=== PATIENT | female | born 2000 | race American Indian/Alaskan Native ===

== ENCOUNTER 2021-04-04 11:39 | Emergency (ER) | payer MEDICAID ==
[2021-04-04] MEDS ORDERED: FAMOTIDINE 20 MG/2 ML INJ IV NR (12:31)
[2021-04-04] MEDS ORDERED: METOCLOPRAMIDE 10 MG/2 ML INJ IV NR (12:31)
[2021-04-04] MEDS ORDERED: MORPHINE 2 MG/1 ML INJ IV NR (12:32)
[2021-04-04] MEDS ORDERED: LACTATED RINGERS 1,000 ML IV ONE (12:32)
[2021-04-04] MEDS ORDERED: MORPHINE 4 MG/1 ML INJ IV ONE (12:43)
--- NOTE | 2021-04-04 12:50 | Emergency Department Report ---
ED General Adult HPI - General Chief complaint: Abdominal Pain Stated complaint: ABDOMINAL PAIN Time Seen by Provider: 04/04/21 12:28 Source: patient Mode of arrival: Ambulatory Limitations: No Limitations - History of Present Illness Initial comments: 20-year-old female patient presents with complaints of sudden onset of upper abdominal pain and nausea and vomiting starting yesterday. She states she took a test yesterday and noted that it was positive also. She admits to a history of GERD and gastritis and denies any hematemesis/coffee-ground emesis, diarrhea/hematochezia/melena, fever/chills/sweats, cough, chest pain, or shortness of breath. She has not tried any medications for her symptoms. She is G1, . Patient also denies any vaginal bleeding, dyspareunia/vaginal discharge, urinary frequency, or dysuria/hematuria. She rates her current abdominal pain is a 10/10 in severity. She states it does feel somewhat similar to when she has had flareups of her gastritis in the past - Related Data Previous Rx's Medication Instructions Recorded Last Taken Type Famotidine [Pepcid] 20 mg PO BID 7 Days #14 tablet 04/04/21 Unknown Rx Metoclopramide [Reglan] 10 mg PO Q8H PRN #30 tab 04/04/21 Unknown Rx diphenhydrAMINE [Benadryl CAP] 25 mg PO Q8H PRN #30 capsule 04/04/21 Unknown Rx Allergies Allergy/AdvReac Type Severity Reaction Status Date / Time No Known Allergies Allergy Verified 04/04/21 16:37 ED Review of Systems ROS: Stated complaint: ABDOMINAL PAIN Other details as noted in HPI Constitutional: denies: chills, diaphoresis, fever, malaise Respiratory: denies: cough, SOB with exertion Cardiovascular: denies: chest pain Gastrointestinal: abdominal pain, nausea, vomiting. denies: diarrhea, constipation, hematemesis, melena, hematochezia Genitourinary: denies: urgency, dysuria, frequency, hematuria, discharge, abnormal menses, dyspareunia Skin: denies: rash, lesions, change in color Neurological: denies: headache Hematological/Lymphatic: denies: swollen glands ED Past Medical Hx - Medications Home Medications: Home Medications Medication Instructions Recorded Confirmed Last Taken Type Famotidine [Pepcid] 20 mg PO BID 7 Days #14 tablet 04/04/21 Unknown Rx Metoclopramide [Reglan] 10 mg PO Q8H PRN #30 tab 04/04/21 Unknown Rx diphenhydrAMINE [Benadryl CAP] 25 mg PO Q8H PRN #30 capsule 04/04/21 Unknown Rx ED Physical Exam - General Limitations: No Limitations General appearance: alert, in no apparent distress, obese - Head Head exam: Present: atraumatic, normocephalic - Eye Eye exam: Present: normal appearance. Absent: scleral icterus - Respiratory Respiratory exam: Absent: respiratory distress - Cardiovascular Cardiovascular Exam: Present: regular rate, normal rhythm - GI/Abdominal GI/Abdominal exam: Present: soft, tenderness (Epigastric/right upper quadrant; mild right lower quadrant), normal bowel sounds. Absent: distended, guarding, rebound, rigid - Back Exam Back exam: Absent: CVA tenderness (R), CVA tenderness (L) - Neurological Exam Neurological exam: Present: alert, oriented X3, normal gait - Psychiatric Psychiatric exam: Present: normal affect, normal mood - Skin Skin exam: Present: warm, dry, intact, normal color. Absent: rash, cyanosis, diaphoretic ED Course Vital Signs 04/04/21 04/04/21 04/04/21 11:44 13:11 15:57 Temperature 99.3 F Pulse Rate 99 H Respiratory 20 16 Rate Blood Pressure 129/80 Blood Pressure [Left] O2 Sat by Pulse 98 99 Oximetry 04/04/21 16:36 Temperature 97.6 F Pulse Rate 73 Respiratory 14 Rate Blood Pressure Blood Pressure 121/75 [Left] O2 Sat by Pulse 99 Oximetry ED Medical Decision Making - Lab Data Result diagrams: 04/04/21 12:21 04/04/21 12:21 Lab Results 04/04/21 04/04/21 04/04/21 Range/Units 12:21 12:21 12:21 WBC 10.4 (4.5-11.0) K/mm3 RBC 4.25 (3.65-5.03) M/mm3 Hgb 13.2 (10.1-14.3) gm/dl Hct 37.8 (30.3-42.9) % MCV 89 (79-97) fl MCH 31 (28-32) pg MCHC 35 H (30-34) % RDW 13.8 (13.2-15.2) % Plt Count 324 (140-440) K/mm3 Lymph % (Auto) 15.6 (13.4-35.0) % [place] % (Auto) 4.2 (0.0-7.3) % Eos % (Auto) 0.6 (0.0-4.3) % Baso % (Auto) 0.6 (0.0-1.8) % Lymph # (Auto) 1.6 (1.2-5.4) K/mm3 [place] # (Auto) 0.4 (0.0-0.8) K/mm3 Eos # (Auto) 0.1 (0.0-0.4) K/mm3 Baso # (Auto) 0.1 (0.0-0.1) K/mm3 Seg Neutrophils % 79.0 H (40.0-70.0) % Seg Neutrophils # 8.2 H (1.8-7.7) K/mm3 Sodium 139 (137-145) mmol/L Potassium 3.8 (3.6-5.0) mmol/L Chloride 103.1 (98-107) mmol/L Carbon Dioxide 20 L (22-30) mmol/L Anion Gap 20 mmol/L BUN 5 L (7-17) mg/dL Creatinine 0.4 L (0.6-1.2) mg/dL Estimated GFR > 60 ml/min BUN/Creatinine Ratio 13 % Glucose 132 H (65-100) mg/dL Calcium 9.3 (8.4-10.2) mg/dL Total Bilirubin 0.40 (0.1-1.2) mg/dL AST 17 (5-40) units/L ALT 24 (7-56) units/L Alkaline Phosphatase 77 (35-129) units/L Total Protein 7.5 (6.3-8.2) g/dL Albumin 4.5 (3.9-5) g/dL Albumin/Globulin Ratio 1.5 % HCG, Quant 53107 H (0-4) mIU/mL Urine Color (Yellow) Urine Turbidity (Clear) Urine pH (5.0-7.0) Ur Specific [place] (1.003-1.030) Urine Protein (Negative) mg/dL Urine Glucose (UA) (Negative) mg/dL Urine Ketones (Negative) mg/dL Urine Blood (Negative) Urine Nitrite (Negative) Ur Reducing Substances Urine Bilirubin (Negative) Urine Ictotest Urine Urobilinogen (<2.0) mg/dL Ur Leukocyte Esterase (Negative) Urine WBC (Auto) (0.0-6.0) /HPF Urine RBC (Auto) (0.0-6.0) /HPF U Epithel Cells (Auto) (0-13.0) /HPF Urine Bacteria (Auto) (Negative) /HPF Urine Mucus /HPF Urine HCG, Qual (Negative) 04/04/21 Range/Units Unknown WBC (4.5-11.0) K/mm3 RBC (3.65-5.03) M/mm3 Hgb (10.1-14.3) gm/dl Hct (30.3-42.9) % MCV (79-97) fl MCH (28-32) pg MCHC (30-34) % RDW (13.2-15.2) % Plt Count (140-440) K/mm3 Lymph % (Auto) (13.4-35.0) % [place] % (Auto) (0.0-7.3) % Eos % (Auto) (0.0-4.3) % Baso % (Auto) (0.0-1.8) % Lymph # (Auto) (1.2-5.4) K/mm3 [place] # (Auto) (0.0-0.8) K/mm3 Eos # (Auto) (0.0-0.4) K/mm3 Baso # (Auto) (0.0-0.1) K/mm3 Seg Neutrophils % (40.0-70.0) % Seg Neutrophils # (1.8-7.7) K/mm3 Sodium (137-145) mmol/L Potassium (3.6-5.0) mmol/L Chloride (98-107) mmol/L Carbon Dioxide (22-30) mmol/L Anion Gap mmol/L BUN (7-17) mg/dL Creatinine (0.6-1.2) mg/dL Estimated GFR ml/min BUN/Creatinine Ratio % Glucose (65-100) mg/dL Calcium (8.4-10.2) mg/dL Total Bilirubin (0.1-1.2) mg/dL AST (5-40) units/L ALT (7-56) units/L Alkaline Phosphatase (35-129) units/L Total Protein (6.3-8.2) g/dL Albumin (3.9-5) g/dL Albumin/Globulin Ratio % HCG, Quant (0-4) mIU/mL Urine Color Yellow (Yellow) Urine Turbidity Clear (Clear) Urine pH 5.0 (5.0-7.0) Ur Specific [place] 1.023 (1.003-1.030) Urine Protein <15 mg/dl (Negative) mg/dL Urine Glucose (UA) Neg (Negative) mg/dL Urine Ketones 20 (Negative) mg/dL Urine Blood Neg (Negative) Urine Nitrite Neg (Negative) Ur Reducing Substances Not Reportable Urine Bilirubin Neg (Negative) Urine Ictotest Not Reportable Urine Urobilinogen 2.0 (<2.0) mg/dL Ur Leukocyte Esterase Neg (Negative) Urine WBC (Auto) 3.0 (0.0-6.0) /HPF Urine RBC (Auto) 6.0 (0.0-6.0) /HPF U Epithel Cells (Auto) 1.0 (0-13.0) /HPF Urine Bacteria (Auto) 1+ (Negative) /HPF Urine Mucus 3+ /HPF Urine HCG, Qual Positive A (Negative) - Radiology Data Radiology results: report reviewed ULTRASOUND OBSTETRIC INDICATION / CLINICAL INFORMATION: pain. Clinical Gestational Age (GA) in weeks, days: 5, 4 TECHNIQUE: Transabdominal. COMPARISON: None available. FINDINGS: GESTATIONAL SAC: There is a hypoechoic area within the endometrium suggesting a gestational sac. The mean sac diameter measures 1.6 cm. This corresponds to a 6 week 3 day gestation. YOLK SAC: Not seen EMBRYO/FETUS: Not seen ADNEXA: No significant abnormality. FREE FLUID: None. ADDITIONAL FINDINGS: None. IMPRESSION: There is a hypoechoic area within the endometrium suggesting a gestational sac. The mean sac diameter measures 1.6 cm corresponding to a 6 week 3 day gestation. The mean sac diameter is too small to establish viability. Recommend repeat ultrasound in 7-10 days. - Medical Decision Making 20-year-old female patient presents with complaints of sudden onset of upper abdominal pain and nausea and vomiting starting yesterday. She states she took a test yesterday and noted that it was positive also. She admits to a history of GERD and gastritis and denies any hematemesis/coffee-ground emesis, diarrhea/hematochezia/melena, fever/chills/sweats, cough, chest pain, or shortness of breath. She has not tried any medications for her symptoms. She is G1, . Patient also denies any vaginal bleeding, dyspareunia/vaginal discharge, urinary frequency, or dysuria/hematuria. She rates her current abdominal pain is a 10/10 in severity. She states it does feel somewhat similar to when she has had flareups of her gastritis in the past No acute abnormalities noted on labs or UA. Right upper quadrant ultrasound is normal. CT performed given some right lower quadrant pain on exam. CT shows possible mild enteritis without other acute findings. IV contrast not used due to patient allergy. Her pain is controlled and she is well-appearing. Discussed findings with patient. We will treat for viral enteritis at this point given patient is afebrile, nontachycardic, and her white count is normal. She is to follow-up with her primary care doctor in 3 to 5 days. Strict return precautions were discussed in detail with patient who verbalizes understanding. Critical care attestation.: If time is entered above; I have spent that time in minutes in the direct care of this critically ill patient, excluding procedure time. ED Disposition Clinical Impression: Nausea/vomiting in , 6 weeks gestation of Disposition: 01 HOME / SELF CARE / HOMELESS Is pt being admited?: No Condition: Stable Instructions: Hyperemesis Gravidarum, Abdominal Pain (ED) Prescriptions: diphenhydrAMINE [Benadryl CAP] 25 mg PO Q8H PRN #30 capsule PRN Reason: Nausea Famotidine [Pepcid] 20 mg PO BID 7 Days #14 tablet Metoclopramide [Reglan] 10 mg PO Q8H PRN #30 tab PRN Reason: Nausea Referrals: [facility] [Provider Group] - 3-5 Days [facility] [Provider Group] - 3-5 Days [facility] [Provider Group] - 3-5 Days Forms: Work/School Release Form(ED)
[2021-04-04] MEDS ORDERED: MORPHINE 2 MG/1 ML INJ IV ONE (12:51)
[2021-04-04 12:53] LABS: Basophils # (Auto) 0.1 K/mm3 (0.0-0.1); Basophils % (Auto) 0.6 % (0.0-1.8); Eosinophils # (Auto) 0.1 K/mm3 (0.0-0.4); Eosinophils % (Auto) 0.6 % (0.0-4.3); Hematocrit 37.8 % (30.3-42.9); Hemoglobin 13.2 gm/dl (10.1-14.3); Lymphocytes # (Auto) 1.6 K/mm3 (1.2-5.4); Lymphocytes % (Auto) 15.6 % (13.4-35.0); Mean Corpuscular HGB Conc 35 % (30-34); Mean Corpuscular Volume 89 fl (79-97); Monocytes # (Auto) 0.4 K/mm3 (0.0-0.8); Monocytes % (Auto) 4.2 % (0.0-7.3); Platelet Count 324 K/mm3 (140-440); Red Blood Count 4.25 M/mm3 (3.65-5.03); Red Cell Distribution Width 13.8 % (13.2-15.2)
[2021-04-04] MEDS ORDERED: diphenhydrAMINE 50 MG/ML VIAL IV NR (13:00)
[2021-04-04 13:01] LABS: HCG Qualitative,Urine Positive (Negative)
[2021-04-04 13:06] LABS: Bacteria,Urine 1+ /HPF (Negative); Bilirubin,Urine NEG (Negative); Blood,Urine NEG (Negative); Color,Urine Yellow (Yellow); Mucus,Urine 3+ /HPF; Protein,Urine <15 mg/dL mg/dL (Negative)
[2021-04-04 13:19] LABS: Alanine Aminotransferase 24 units/L (7-56); Albumin 4.5 g/dL (3.9-5); BUN/Creatinine Ratio 13; Blood Urea Nitrogen 5 mg/dL (7-17); Calcium 9.3 mg/dL (8.4-10.2); Hemolysis Index 0
--- NOTE | 2021-04-04 14:38 | Ultrasound Report ---
ULTRASOUND ABDOMEN, LIMITED (RIGHT UPPER QUADRANT) INDICATION: acute pain. COMPARISON: None available. FINDINGS: Pancreas: Visualized portion shows no significant abnormality. Liver: Normal. Gallbladder: Normal. Bile ducts: Normal. Common Bile Duct measures 2.8 mm. Free fluid: None. Additional Findings: None. IMPRESSION: Unremarkable right upper quadrant ultrasound. Signer Name: Logan Yuen MD Signed: 04/04/2021 2:34 PM Workstation Name: [id number]
--- NOTE | 2021-04-04 14:39 | Ultrasound Report ---
ULTRASOUND OBSTETRIC INDICATION / CLINICAL INFORMATION: pain. Clinical Gestational Age (GA) in weeks, days: 5, 4 TECHNIQUE: Transabdominal. COMPARISON: None available. FINDINGS: GESTATIONAL SAC: There is a hypoechoic area within the endometrium suggesting a gestational sac. The mean sac diameter measures 1.6 cm. This corresponds to a 6 week 3 day gestation. YOLK SAC: Not seen EMBRYO/FETUS: Not seen ADNEXA: No significant abnormality. FREE FLUID: None. ADDITIONAL FINDINGS: None. IMPRESSION: There is a hypoechoic area within the endometrium suggesting a gestational sac. The mean sac diameter measures 1.6 cm corresponding to a 6 week 3 day gestation. The mean sac diameter is too small to est ablish viability. Recommend repeat ultrasound in 7-10 days. Signer Name: Keenan Porras DO Signed: 04/04/2021 2:34 PM Workstation Name: [id number]
[2021-04-04] MEDS ORDERED: FAMOTIDINE 20 MG/2 ML INJ IV ONE (14:49)
[2021-04-04] MEDS ORDERED: METOCLOPRAMIDE 10 MG/2 ML INJ IV ONE (14:49)
[2021-04-04] MEDS ORDERED: PROMETHAZINE 25 MG TAB PO ONE (16:24)
[2021-04-04 16:37] VITALS: BP 121/75
[2021-04-04] MEDS ORDERED: diphenhydrAMINE 50 MG/ML VIAL IV ONE (16:48)
[2021-04-04] MEDS ORDERED: ONDANSETRON 4 MG/2 ML INJ IV ONE (16:48)
[2021-04-04] MEDS ORDERED: ONDANSETRON 4 MG/2 ML INJ IM ONE (16:50)
[2021-04-04] MEDS ORDERED: diphenhydrAMINE 50 MG/ML VIAL IM ONE (16:50)
[2021-04-04] MEDS ORDERED: PROMETHAZINE 25 MG RECT SUPP PR ONE (18:01)
== END 2021-04-04 16:36 | disposition home or self-care (01) ==
LOC: ED 11:39
DX: O21.9 Vomiting of pregnancy, unspecified (principal); O26.891 Other specified pregnancy related conditions, first trimester; R10.31 Right lower quadrant pain; Z3A.01 Less than 8 weeks gestation of pregnancy; Z79.899 Other long term (current) drug therapy
CPT/HCPCS: 36415; 76705; 76801; 80053; 81001; 81025; 84702; 85025; 96361; 96372; 96374; 96375; 96376; 99284; J1200; J2270; J2405; J2765; J3490; J7120; Q0169

== ENCOUNTER 2021-10-20 22:05 | Outpatient (CLI) | payer MEDICAID, OTHER ==
[2021-10-20 22:35] VITALS: BP 129/68
[2021-10-21 01:01] LABS: Basophils % (Auto) 0.4 % (0.0-1.8); Eosinophils # (Auto) 0.1 K/mm3 (0.0-0.4); Eosinophils % (Auto) 1.1 % (0.0-4.3); Hematocrit 38.1 % (30.3-42.9); Hemoglobin 12.9 gm/dl (10.1-14.3); Lymphocytes # (Auto) 1.7 K/mm3 (1.2-5.4); Lymphocytes % (Auto) 15.5 % (13.4-35.0); Mean Corpuscular HGB Conc 34 % (30-34); Mean Corpuscular Volume 85 fl (79-97); Monocytes # (Auto) 0.7 K/mm3 (0.0-0.8); Monocytes % (Auto) 6.9 % (0.0-7.3); Platelet Count 266 K/mm3 (140-440); Red Blood Count 4.47 M/mm3 (3.65-5.03); Red Cell Distribution Width 14.3 % (13.2-15.2)
== END 2021-10-21 00:43 | disposition left against medical advice (07) ==
LOC: TRG 22:05 → APU 22:07 → TRG 10-21 00:43
PROVIDERS: ATTEND Obstetrics & Gynecology
DX: Z34.93 Encounter for supervision of normal pregnancy, unspecified, third trimester (principal); Z3A.35 35 weeks gestation of pregnancy
CPT/HCPCS: 36415; 84112; 85025